=== PATIENT | male | born 1950 | race Caucasian/White ===

== ENCOUNTER 2019-10-24 16:03 | Emergency (ER) | payer MEDICARE, OTHER ==
--- NOTE | 2019-10-24 17:20 | CR ---
Chest: PA and lateral views of the chest were obtained. Comparison: No prior chest x-ray is available. Heart size and mediastinum are normal. Minimal atelectasis is seen within both lungs. Lungs otherwise are clear. 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 Right shoulder prosthesis is noted. Impression: 1. Mild areas of scattered atelectasis. 2. Other findings as noted above. 3. Nothing acute is appreciated. Diagnostic code #2 This report was dictated in [place] Standard Time
--- NOTE | 2019-10-24 17:20 | CR ---
Left ribs: 3 views left ribs were obtained. Mild deformity is noted With Thin 2 or 3 ribs within the left lower chest compatible with old healed fractures. No acute fracture or other abnormality is appreciated. Impression: 1. Old fractures healed fractures. 2. Nothing acute is definitely appreciated within the left ribs. Diagnostic code #2 This report was dictated in [place] Standard Time
--- NOTE | 2019-10-24 18:01 | EDM.PDOC ---
ED HPI GENERAL MEDICAL PROBLEM - General Chief Complaint: Back Pain or Injury Stated Complaint: BACK/HIP INJURY (FALL) Time Seen by Provider: 10/24/19 16:03 - History of Present Illness INITIAL COMMENTS - FREE TEXT/NARRATIVE: 68-year-old male presents the emergency room after slipping on the ice and falling. Shortly before arrival the patient slipped and fell landing on his left side. He has some left-sided rib pain. He also may have hit his hip he has some discomfort there but is ambulating okay it is a little tight but no significant problems. The patient is absolutely certain he did not hit his head. He is on Coumadin. He normally takes 5 mg a day then take an extra 2.5 on Mondays and Fridays. Patient denies any other injuries with this mishap. - Related Data Allergies Allergy/AdvReac Type Severity Reaction Status Date / Time sulfamethoxazole Allergy Other Verified 10/24/19 16:20 [From Bactrim] trimethoprim Allergy Other Verified 10/24/19 16:20 Home Meds: Home Meds Aspirin [Ecotrin] 81 mg PO DAILY 06/19/17 [History] Fexofenadine [Radha] 180 mg PO DAILY PRN 06/19/17 [History] Finasteride 5 mg PO DAILY 06/19/17 [History] Metoprolol Succinate 25 mg PO BID 06/19/17 [History] Multivitamin [Daily Randell] 1 each PO DAILY 06/19/17 [History] Terazosin [Hytrin] 5 mg PO BEDTIME 06/19/17 [History] Zolpidem [Ambien] 5 mg PO BEDTIME 06/19/17 [History] Warfarin [Coumadin] 5 mg PO SUTUWESA 10/24/19 [History] Warfarin [Coumadin] 7.5 mg PO MOFR 10/24/19 [History] Past Medical History HEENT History: Reports: Impaired Vision Cardiovascular History: Reports: Hypertension Genitourinary History: Reports: Retention, Urinary - Past Surgical History Cardiovascular Surgical History: Reports: Other (See Below) Other Cardiovascular Surgeries/Procedures: Valve repair Musculoskeletal Surgical History: Reports: Shoulder Replacement, Shoulder Surgery Social & Family History - Family History Family Medical History: Noncontributory - Tobacco Use Smoking Status *Q: Never Smoker Second Hand Smoke Exposure: No - Caffeine Use Caffeine Use: Reports: Coffee, Tea - Recreational Drug Use Recreational Drug Use: No ED ROS GENERAL - Review of Systems Review Of Systems: See Below Constitutional: Reports: No Symptoms HEENT: Reports: No Symptoms. Denies: Vision Change Respiratory: Reports: Pleuritic Chest Pain. Denies: No Symptoms, Cough, Sputum , Hemoptysis Cardiovascular: Reports: No Symptoms GI/Abdominal: Reports: No Symptoms Musculoskeletal: Reports: Other (Soft tissue discomfort in his left hip and chest wall discomfort on the left) Neurological: Denies: Confusion, Dizziness, Headache ED EXAM, UPPER BACK/NECK PAIN - Physical Exam Exam: See Below Exam Limited By: No Limitations General Appearance: Alert, No Apparent Distress Eye Exam: Bilateral Eye: Normal Inspection Ears Exam: Normal External Exam, Normal Canal, Hearing Grossly Normal, Normal TMs Nose Exam: Normal Inspection, Normal Mucousa, No Blood Throat/Mouth Exam: Normal Inspection, Normal Lips, Normal Teeth, Normal Gums, Normal Oropharynx, Normal Voice, No Airway Compromise Head Exam: Atraumatic, Normocephalic, Other (No evidence of any trauma anywhere) Neck Exam: Non-Tender, Full Range of Motion, Normal Alignment, Normal Inspection. No: Painful Range of Motion, Paraspinous Muscle Tender, Spinous Processes Tender, Stiff Neck, Tenderness Cardiovascular/Respiratory: Regular Rate, Rhythm, No M/R/G, Normal Breath Sounds , No Respiratory Distress GI/Abdominal: Normal Bowel Sounds, Soft, Non-Tender, Pelvis Stable Extremities: Normal Inspection, Normal Range of Motion, Non-Tender, No Pedal Edema, Normal Capillary Refill, Other (Did not land on his hands. 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 As Tested, No Motor/Sensory Deficits, Alert, Normal Mood/Affect, Oriented x 3 Course - Vital Signs Last Recorded V/S: Last Vital Signs Temp 36.2 C 10/24/19 16:13 Pulse 68 10/24/19 16:13 Resp 18 10/24/19 16:13 BP 139/83 10/24/19 16:13 Pulse Ox 97 10/24/19 16:13 - Orders/Labs/Meds Labs: Laboratory Tests 10/24/19 10/24/19 10/24/19 Range/Units 16:21 16:21 16:21 WBC 7.72 (4.23-9.07) K/mm3 RBC 5.24 (4.63-6.08) M/mm3 Hgb 15.9 (13.7-17.5) gm/dl Hct 46.9 (40.1-51.0) % MCV 89.5 (79.0-92.2) fl MCH 30.3 (25.7-32.2) pg MCHC 33.9 (32.2-35.5) g/dl RDW Std Deviation 43.2 (35.1-43.9) fL Plt Count 185 (163-337) K/mm3 MPV 10.0 (9.4-12.3) fl Neut % (Auto) 74.3 H (34.0-67.9) % Lymph % (Auto) 15.9 L (21.8-53.1) % [place] % (Auto) 6.9 (5.3-12.2) % Eos % (Auto) 2.5 (0.8-7.0) Baso % (Auto) 0.3 (0.1-1.2) % Neut # (Auto) 5.74 H (1.78-5.38) K/mm3 Lymph # (Auto) 1.23 L (1.32-3.57) K/mm3 [place] # (Auto) 0.53 (0.30-0.82) K/mm3 Eos # (Auto) 0.19 (0.04-0.54) K/mm3 Baso # (Auto) 0.02 (0.01-0.08) K/mm3 PT 20.5 H (9.7-12.0) SECONDS INR 1.95 Sodium 138 (136-145) mEq/L Potassium 4.3 (3.5-5.1) mEq/L Chloride 102 (98-107) mEq/L Carbon Dioxide 26 (21-32) mEq/L Anion Gap 14.3 (5-15) BUN 24 H (7-18) mg/dL Creatinine 1.1 (0.7-1.3) mg/dL Est Cr Clr Drug Dosing 68.59 mL/min Estimated GFR (MDRD) > 60 (>60) mL/min BUN/Creatinine Ratio 21.8 H (14-18) Glucose 109 (80-115) mg/dL Calcium 8.9 (8.5-10.1) mg/dL Total Bilirubin 0.8 (0.2-1.0) mg/dL AST 27 (15-37) U/L ALT 31 (16-63) U/L Alkaline Phosphatase 58 (46-116) U/L Total Protein 7.8 (6.4-8.2) g/dl Albumin 4.0 (3.4-5.0) g/dl Globulin 3.8 gm/dL Albumin/Globulin Ratio 1.1 (1-2) - Re-Assessments/Exams Free Text/Narrative Re-Assessment/Exam: 10/24/19 18:13 The patient did not hit his head by history and on exam there is no evidence of any head injury. His INR is a little subtherapeutic at 1.95 he will take an extra half a pill today and then tomorrow is 1 of the days he normally takes 1-1 /2 pills. He should call the Coumadin clinic tomorrow with the results of this. X-rays of the chest and left ribs reveal no acute changes he is got some healed fractures on the left side. Departure - Departure Time of Disposition: 18:14 Disposition: Home, Self-Care 01 Clinical Impression: Contusion of left chest wall - Discharge Information Referrals: Germain Carrillo MD [Primary Care Provider] - Forms: ED Department Discharge Additional Instructions: Return to the emergency room with any questions problems or worsening symptoms. Use Tylenol as needed for the discomfort. Call the Coumadin clinic tomorrow morning inform them your INR was 1.95. You were instructed to take an extra half a tablet today and again tomorrow the normal half a tablet extra tomorrow. Follow-up with your regular doctor in 1 week if needed Sepsis Event Note - Evaluation Sepsis Screening Result: No Definite Risk - Focused Exam Vital Signs: Vital Signs Temp Pulse Resp BP Pulse Ox 10/24/19 16:13 36.2 C 68 18 139/83 97 Date Exam was Performed: 10/24/19 Time Exam was Performed: 18:08
[2019-10-24 19:00] VITALS: BP 124/80; PULSE 71
== END 2019-10-24 18:20 | disposition home or self-care (01) ==
LOC: JD.ED 16:03
DX: S20.212A Contusion of left front wall of thorax, initial encounter (principal); Z79.82 Long term (current) use of aspirin; Z79.899 Other long term (current) drug therapy; Z88.2 Allergy status to sulfonamides; Z79.01 Long term (current) use of anticoagulants; Z88.8 Allergy status to other drugs, medicaments and biological substances; W01.0XXA Fall on same level from slipping, tripping and stumbling without subsequent striking against object, initial encounter
CPT/HCPCS: 36415; 71046; 71046-26; 71100-26-LT; 71100-LT; 80053; 85025; 85610; 99282; 99283-25

== ENCOUNTER 2021-03-13 08:27 | Emergency (ER) | payer MEDICARE, OTHER ==
[2021-03-13 08:49] VITALS: BP 113/75; PULSE 60
[2021-03-13] MEDS ORDERED: Diphtheria,Pertussis(Acell),Tetanus Vaccine 0.5 ML Syringe IM ONE (08:54)
[2021-03-13] MEDS ORDERED: Lidocaine 1% 10 ML MDV INJECT ONE (08:55)
--- NOTE | 2021-03-13 08:59 | EDM.PDOC ---
ED HPI GENERAL MEDICAL PROBLEM - General Chief Complaint: Skin Complaint Stated Complaint: FISH HOOK IN R HAND Time Seen by Provider: 03/13/21 08:50 Source of Information: Reports: Patient History Limitations: Reports: No Limitations - History of Present Illness INITIAL COMMENTS - FREE TEXT/NARRATIVE: 70-year-old male presents to the ED for evaluation of a fishhook that has pen etrated the dorsal aspect of his right hand between the index and third finger. No evidence of neurovascular injury. 2 barbs of the hook have injured his skin. One is easily visible and the other is partially protruding from the skin. He states [place] and therefore it is quite dirty. 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 Injury occurred about 0700 hrs. this morning. He is not sure when his last tetanus toxoid was updated. Onset: Today, Sudden Onset Date: 03/13/21 Onset Time: 07:00 Duration: Minutes: Location: Reports: Upper Extremity, Right (Adjacent to the) Quality: Reports: Ache ( distal 6-second metacarpal head.) Severity: Mild Improves with: Reports: Rest Worsens with: Reports: Movement Context: Reports: Trauma. Denies: Activity, Exercise, Lifting (Movement will bother the area a bit.), Sick Contact Associated Symptoms: Reports: No Other Symptoms (Accidental fishhook embedded in his right dorsal hand) Treatments SAMPLE FINISHER: Reports: Other (see below) (None.) Right Hand Pain Score (Numeric/FACES): 0 - Related Data Allergies Allergy/AdvReac Type Severity Reaction Status Date / Time sulfamethoxazole Allergy Other Verified 10/24/19 16:20 [From Bactrim] trimethoprim Allergy Other Verified 10/24/19 16:20 Home Meds: Home Meds Aspirin [Ecotrin] 81 mg PO DAILY 06/19/17 [History] Fexofenadine [Radha] 180 mg PO DAILY PRN 06/19/17 [History] Finasteride 5 mg PO DAILY 06/19/17 [History] Metoprolol Succinate 25 mg PO BID 06/19/17 [History] Multivitamin [Daily Randell] 1 each PO DAILY 06/19/17 [History] Terazosin [Hytrin] 5 mg PO BEDTIME 06/19/17 [History] Zolpidem [Ambien] 2.5 mg PO BEDTIME 06/19/17 [History] Warfarin [Coumadin] 5 mg PO SUTUTHSA 10/24/19 [History] Warfarin [Coumadin] 7.5 mg PO MOWEFR 10/24/19 [History] Albuterol Sulfate [Albuterol Sulfate HFA] 1 puff INH PRN 03/13/21 [History] Azelastine HCl 2 spray CATE DAILY 03/13/21 [History] Fluticasone Propion/Salmeterol [Advair Hfa 45-21 Mcg Inhaler] 1 puff INH DAILY 03/13/21 [History] Fluticasone Propionate [Flonase Allergy Relief] 1 spray CATE DAILY 03/13/21 [History] Past Medical History HEENT History: Reports: Allergic Rhinitis, Impaired Vision Cardiovascular History: Reports: Afib, Hypertension Respiratory History: Reports: Asthma, COPD (Mild COPD) Genitourinary History: Reports: BPH, Retention, Urinary Musculoskeletal History: Reports: Osteoarthritis, Other (See Below) (Distal hands. On inspection he has significant swelling across his MCP joints bilaterally and knee pain suggesting rheumatoid arthritis. He does not believe he has been checked for this in the past.) - Past Surgical History Cardiovascular Surgical History: Reports: Other (See Below) Other Cardiovascular Surgeries/Procedures: Valve repair Musculoskeletal Surgical History: Reports: Shoulder Replacement, Shoulder Surgery Social & Family History - Family History Family Medical History: No Pertinent Family History - Caffeine Use Caffeine Use: Reports: Coffee, Tea - Living Situation & Occupation Living situation: Reports: Occupation: Retired [employer] [facility] - Review of Systems Review Of Systems: See Below Constitutional: Reports: Fatigue. Denies: Fever, Chills, Malaise, Weakness HEENT: Reports: Glasses Respiratory: Reports: Shortness of Breath. Denies: Wheezing, Pleuritic Chest Pain (On occasion.), Cough Cardiovascular: Reports: Blood Pressure Problem. Denies: Chest Pain, Claudication, Edema, Lightheadedness, Orthopnea Endocrine: Reports: Fatigue GI/Abdominal: Reports: No Symptoms : Reports: Frequency, Other (Nocturia x2-3. Has known BPH.) Musculoskeletal: Reports: Back Pain, Joint Pain (Especially knees hips and hands.) Skin: Reports: Bruising Neurological: Reports: No Symptoms (Bruises easily as he is on Coumadin.) Psychiatric: Reports: No Symptoms Hematologic/Lymphatic: Reports: No Symptoms Immunologic: Reports: No Symptoms ED EXAM, SKIN/RASH Exam: See Below Exam Limited By: No Limitations General Appearance: Alert, WD/WN, No Apparent Distress, Other (Vital signs are stable with temperature of 36.2 degrees heart rate 60 in sinus respiratory is 14 with O2 sats of 99% room air. BP 113/75.) Eye Exam: Bilateral Eye: Normal Inspection (No scleral icterus or blepharal pallor.), PERRL Extremities: Other (Patient has a triple barbed fishhook with 2 barbs embedded in the soft tissues of the dorsal aspect of his right hand adjacent to the distal second metacarpal head. One ruth is easily visible and will be cut off the second bar block to be pushed through the skin and be cut off to remove the fishhoo) Neurological: Alert, Oriented, CN II-XII Intact, Normal Cognition Psychiatric: Normal Affect, Normal Mood ED SKIN PROCEDURES - Foreign Body Removal Indication:: [place] embedded dorsal right hand Consent Obtained:: Patient Performing Doctor:: Tony Shields Foreign Body Other Location Comment:: [place] embedded dorsal right hand Anesthesia Type: Local (Lidocaine 1%) Complications:: No Comments:: Initial ruth was cut off and then I was able to push a second ruth through the skin and cut it off with wire cutters and remove the fishhook. Patient will cl eanse the wound daily with soap and water and apply topical antibiotic. Course - Vital Signs Last Recorded V/S: Last Vital Signs Temp 36.2 C 03/13/21 08:47 Pulse 60 03/13/21 08:47 Resp 14 03/13/21 08:47 BP 113/75 03/13/21 08:47 Pulse Ox 99 03/13/21 08:47 - Orders/Labs/Meds Meds: Medications Discontinued Medications Generic Name Dose Route Start Last Admin Trade Name José Manuelq PRN Reason Stop Dose Admin Diphtheria/Tetanus/Acell Pertussis 0.5 ml 03/13/21 08:54 03/13/21 09:16 Diphtheria,Pertussis(Acell),Tetanus Vaccine 0.5 Ml Syringe IM 03/13/21 08:55 Not Given .ONCE ONE Lidocaine HCl 10 ml 03/13/21 08:55 03/13/21 09:16 Lidocaine 1% 10 Ml Mdv INJECT 03/13/21 08:56 10 ml ONETIME ONE Administration - Radiology Interpretation Free Text/Narrative:: 70-year-old male presents to the ED with an fishhook embedded in dorsal aspect of his right hand with 2 barbs embedded in the soft tissues. These will be removed with the aid of wire cutters under local anesthetic using lidocaine 1%. His tetanus diphtheria pertussis vaccine will be updated today. - Re-Assessments/Exams Free Text/Narrative Re-Assessment/Exam: 03/13/21 09:32: [place] removed from dorsal aspect right hand under local anesthetic with 2 barbs cut to remove the fishhook in total. Minimal bleeding from the wound. Topical antibiotic and Band-Aid applied tetanus diphtheria and pertussis vaccine has been updated today. Departure - Departure Time of Disposition: 09:25 Disposition: Home, Self-Care 01 Condition: Fair Clinical Impression: [place] injury to finger Qualifiers: Encounter type: initial encounter Laterality: right Qualified Code(s): S69.91XA - Unspecified injury of right wrist, hand and finger(s), initial encounter - Discharge Information *PRESCRIPTION DRUG MONITORING PROGRAM REVIEWED*: Not Applicable *COPY OF PRESCRIPTION DRUG MONITORING REPORT IN PATIENT CONSUELO: Not Applicable Instructions: Wound Care, Adult Referrals: Germain Carrillo MD [Primary Care Provider] - Forms: ED Department Discharge Additional Instructions: Evaluation in the emergency room today in regards to a fishhook that entered the dorsal aspect of your right hand adjacent to the second metacarpal bone in your hand. The area was anesthetized with 1% lidocaine and the barbs were cut off and the fishhook was removed. Treatment is to daily cleanse the wound with soap and water. Showering is okay. Then apply topical antibiotic such as bacitracin or Polysporin once daily for the next 3 to 5 days until the wound heals. Return to medical care if any signs of infection develop such as redness, swelling, increased pain or obvious pus. Your tetanus diphtheria and pertussis vaccine was also updated today and is good for the next 10 years. Sepsis Event Note (ED) - Evaluation Sepsis Screening Result: No Definite Risk - Focused Exam Vital Signs: Vital Signs Temp Pulse Resp BP Pulse Ox 03/13/21 08:47 36.2 C 60 14 113/75 99
== END 2021-03-13 09:38 | disposition home or self-care (01) ==
LOC: JD.ED 08:27
DX: S60.551A Superficial foreign body of right hand, initial encounter (principal); I48.91 Unspecified atrial fibrillation; I10 Essential (primary) hypertension; J44.9 Chronic obstructive pulmonary disease, unspecified; M19.90 Unspecified osteoarthritis, unspecified site; N40.0 Benign prostatic hyperplasia without lower urinary tract symptoms; Z79.01 Long term (current) use of anticoagulants; Z79.899 Other long term (current) drug therapy; Z79.82 Long term (current) use of aspirin; Z88.2 Allergy status to sulfonamides; W45.8XXA Other foreign body or object entering through skin, initial encounter
CPT/HCPCS: 10120; 99282; 99283

== ENCOUNTER 2023-04-29 14:02 | Emergency (ER) | payer MEDICARE, OTHER ==
[2023-04-29] MEDS ORDERED: Lidocaine 1% 10 ML MDV INJECT ONE (14:14)
[2023-04-29 15:17] VITALS: BP 124/69; PULSE 59
== END 2023-04-29 14:48 | disposition home or self-care (01) ==
LOC: JD.ED 14:02
DX: S61.210A Laceration without foreign body of right index finger without damage to nail, initial encounter (principal); J44.9 Chronic obstructive pulmonary disease, unspecified; J45.909 Unspecified asthma, uncomplicated; I48.91 Unspecified atrial fibrillation; I10 Essential (primary) hypertension; E66.9 Obesity, unspecified; M19.90 Unspecified osteoarthritis, unspecified site; Z88.2 Allergy status to sulfonamides; Z88.8 Allergy status to other drugs, medicaments and biological substances; Z79.82 Long term (current) use of aspirin; Z79.01 Long term (current) use of anticoagulants; W26.0XXA Contact with knife, initial encounter
CPT/HCPCS: 12001; 99282; 99283; J3490